=== PATIENT | male | born 1990 | race Caucasian/White ===

== ENCOUNTER → 2019-04-20 08:26 | Outpatient (CLI) | payer OTHER, SELFPAY ==
--- NOTE | ~2019-04-20 | XR_ITS ---
EXAMINATION: XR lumbar spine 2-3V DATE: 04/20/2019 08:45 INDICATION: Low back pain. TECHNIQUE: 3 views of lumbar spine were obtained. COMPARISON: None. FINDINGS: Bone alignment is normal. Vertebral body heights and intervertebral disc heights are normal . There is an osteophyte of the L5 superior endplate. There is multilevel mild facet joint osteoarthr itis. IMPRESSION: 1. Mild lumbar spondylosis. Reviewed, dictated and finalized at location A. ER TESTER IMPRESSION: 1. Mild lumbar spondylosis.
== END ==
DX: M47.896 Other spondylosis, lumbar region (principal)
CPT/HCPCS: 72100

== ENCOUNTER 2021-05-12 15:13 | Emergency (ER) | payer OTHER, SELFPAY ==
[2021-05-12 15:38] VITALS: BP 134/89; PULSE 124; RESP 18; TEMP 36.6; O2SAT 100
--- NOTE | 2021-05-12 16:35 | ED.EAR ---
HPI - Ear Problem General Chief complaint: Ear Stated complaint: rt ear pain Time Seen by Provider: 05/12/21 16:35 Source: patient, RN notes reviewed and old records reviewed Mode of arrival: ambulatory Limitations: no limitations History of Present Illness HPI Narrative: 30-year-old male patient presents to [facility] with complaints of right ear pain starting today. [place] like he had cold symptoms starting. Reports starting to feel sinus congestion 3 days ago with headache in forehead. Has history of ear infections. Admits feeling dizzy at times. Was chewing on ice earlier today, felt sharp pain in right ear and right ear started to feel better. Reports decreased hearing in right ear. Had surgery on left ear several years ago. Reports sinus congestion has improved. Denies sinus drainage. Has started taking Claritin-D, which usually helps. Did test negative for Covid yesterday and the day before. Denies fever muscle aches or chills. Denies sore throat, cough, shortness of breath, or difficulty breathing. MD Complaint: ear pain, ear discharge and decreased hearing Location: right ear Related Data Allergies Allergy/AdvReac Type Severity Reaction Status Date / Time No Known Allergies Allergy Mild Verified 05/12/21 15:58 Review of Systems Review of Systems: CONSTITUTIONAL: Denies fever, chills, or sweats. EYES: Denies visual changes, redness, or discharge. ENT: Denies rhinorrhea or sore throat. Reports sinus congestion 3 days ago. Reports mild ear pain, worse today. CARDIOVASCULAR: Denies chest pain, palpitations, or edema. RESPIRATORY: Denies cough or dyspnea. GASTROINTESTINAL: Denies abdominal pain, nausea, vomiting, or diarrhea. GENITOURINARY: Denies dysuria or hematuria. SKIN: Denies rash or itching. MUSCULOSKELETAL: Denies back pain, joint pain, or myalgia. NEUROLOGIC: Denies numbness, or weakness. Reports headache across forehead 3 days ago. PSYCHIATRIC: Denies anxiety or depression. All other systems reviewed are negative, except as documented in HPI. All systems reviewed & are unremarkable except as noted in HPI and below PMFSH Family History Family History Mother Patient's mother is in good health Father Patient's father is in good health Sibling Patient's sister is in good health Social History Social History Smoking status: Never smoker Alcohol intake: current Exam Narrative: GENERAL: Well-appearing, well-nourished, male and in no acute distress. Pleasant, cooperative, casually dressed. HEAD: Normocephalic, atraumatic. EYES: conjunctivae clear, and EOMI. No nystagmus. ENT: Nares clear, turbinates pink, no rhinorrhea or epistaxis. Mucous membranes moist. Left TM intact, greene, injected with sharp light reflex bilaterally; no tragal tenderness. Right tympanic membrane intact erythematous and bulging. Oropharynx without erythema or lesions. Tonsils not enlarged and without exudate. NECK: Supple. Full range of motion. No anterior cervical or tonsillar lymphadenopathy or tenderness with palpation. No jugular venous distension, thyromegaly, or carotid bruits. Carotids were easily palpable bilaterally. CHEST: No respiratory distress. Clear to auscultation. No bony deformities, no asymmetry. Speaks in full sentences. HEART: Regular rate and rhythm. No murmur heard. Normal peripheral pulses. ABDOMEN: Soft, nontender, nondistended, normal active bowel sounds, no palpable masses. EXTREMITIES: Normal range of motion. No edema. Normal strength and sensation. SKIN: Warm, dry, no rash. NEURO: Alert and oriented x3. No focal deficits. Cranial nerves II through XII grossly intact PSYCH: Normal mood and affect Course Course Emergency Course: Patient is aware of diagnosis, understands and agrees to treatment plan. Anticipatory guidance given. Patient agrees to follow-up as directed and is aware of reaso
== END 2021-05-12 16:57 | disposition home or self-care (01) ==
PROVIDERS: Emergency Provider Nurse Practitioner Family
DX: H66.001 Acute suppurative otitis media without spontaneous rupture of ear drum, right ear (principal)
CPT/HCPCS: 99213; G0463

== ENCOUNTER 2022-03-24 18:53 | Emergency (ER) | payer OTHER, SELFPAY ==
[2022-03-24 19:01] VITALS: BP 110/79; PULSE 89; RESP 18; TEMP 35.9; O2SAT 98
--- NOTE | 2022-03-24 19:10 | ED.EAR ---
HPI - Ear Problem General Chief complaint: Ear Stated complaint: Rt Ear Irritation Time Seen by Provider: 03/24/22 19:10 Source: patient Mode of arrival: ambulatory Limitations: no limitations History of Present Illness HPI Narrative: 31-year-old male presented for complaint of right ear pain, onset today. Endorses mild decreased hearing and some sinus congestion and drainage over the last 3 days. He denies Tinnitus, dizziness, cough, shortness of breath, wheezing, nausea, vomiting, diarrhea, fevers or chills. he has been taking Claritin-D. Endorses 2 weeks ago he was diagnosed with a sinus infection as well as a left ear infection and completed a course of Augmentin with resolution in symptoms. Also had ear infection about 3 months ago. MD Complaint: ear pain Related Data Allergies Allergy/AdvReac Type Severity Reaction Status Date / Time No Known Allergies Allergy Mild Verified 03/24/22 18:57 Review of Systems Review of Systems: CONSTITUTIONAL: Denies malaise, chills, or fever. EYES: Denies visual changes, redness, or discharge. ENT: Reports ear pain, rhinorrhea, congestion CARDIOVASCULAR: Denies chest pain, palpitations, or edema. RESPIRATORY: Denies cough or dyspnea. GASTROINTESTINAL: Denies abdominal pain, nausea, vomiting, diarrhea SKIN: Denies rash or itching. MUSCULOSKELETAL: Denies myalgia. NEUROLOGIC: Denies headache. All systems reviewed & are unremarkable except as noted in HPI and below PMFSH Family History Family History Mother Patient's mother is in good health Father Patient's father is in good health Sibling Patient's sister is in good health Social History Social History Smoking status: Never smoker Alcohol intake: current Comments At time of signature, agree with nursing past medical, surgical, social and family history. There is no relevant family history pertinent to the presenting complaint Exam Narrative: GENERAL: Well-appearing, well-nourished, and in no acute distress. HEAD: Normocephalic EYES: PERRLA, conjunctivae clear ENT: Nasal congestion. Mucous membranes moist. Left TM pearly greene with dull light reflex and clear effusion; Right TM erythematous, bulging, with purulent effusion; no tragal tenderness. Oropharynx not erythematous without lesions. CHEST: Clear to auscultation, breath sounds equal. HEART: Regular rate and rhythm. SKIN: Warm, dry, no rash. NEURO: Alert and oriented x3. PSYCH: Normal mood and affect Course Course Emergency Course: Patient is aware of diagnosis, understands and agrees to treatment plan. Anticipatory guidance given. Patient agrees to follow-up as directed and is aware of reasons to seek care at the emergency department. Portions of this record may have been created with voice recognition software Level of Care: Express Care Visit Vital Signs Vital signs: Vital Signs Temperature 96.7 F L 03/24/22 19:01 Pulse Rate 89 03/24/22 19:01 Respiratory Rate 18 03/24/22 19:01 Blood Pressure 110/79 03/24/22 19:01 Pulse Oximetry 98 03/24/22 19:01 Oxygen Delivery Room Air 03/24/22 19:01 Temperature 96.7 F L 03/24/22 19:01 Pulse Rate 89 03/24/22 19:01 Respiratory Rate 18 03/24/22 19:01 Blood Pressure 110/79 03/24/22 19:01 Pulse Oximetry 98 03/24/22 19:01 Oxygen Delivery Room Air 03/24/22 19:01 Reviewed Medical Decision Making MDM Narrative Medical decision making narrative: Advised supportive measures and signs/symptoms to go to the ER. Patient is appropriate for outpatient treatment and follow-up. Given list of PCPs and ENT. Differential Diagnosis Differential Diagnosis: Coronavirus, strep pharyngitis, allergic rhinitis, upper respiratory tract infection, sinusitis, rhinosinusitis, nasopharyngitis, viral pharyngitis, otitis media, otitis externa, eustachian tube dysfunction, foreign body, ceru
== END 2022-03-24 19:18 | disposition home or self-care (01) ==
PROVIDERS: Emergency Provider Nurse Practitioner Family
DX: H66.001 Acute suppurative otitis media without spontaneous rupture of ear drum, right ear (principal)
CPT/HCPCS: 99213; G0463